=== PATIENT | female | born 1955 | race Caucasian/White ===

== ENCOUNTER 2017-02-24 11:32 | Day surgery (SDC) | payer MEDICARE, OTHER ==
--- NOTE | ~2017-02-24 | EGD ---
EGD REPORT [facility] [address] [place] [address] NAME: IAN MANTILLA : [birth year] STATUS : REG [facility] PAT#: [id number] AGE: 61 ADM/REG DATE : 02/24/17 MR#: [id number] REPORT SERV DATE: 02/24/17 DICTATED BY: DORETHA JACOBS DATE: 02/24/17 REPORT STATUS : Draft [facility]ANSCRIBED [facility]: [facility] DATE: 02/24/17 [facility] Patient Name: Ian Mantilla Date of : 1955 Attending MD: DORETHA JACOBS MD Procedure Date No Time: 02/24/2017 Procedure: Colonoscopy Indications: High risk colon cancer surveillance: Personal history of colonic polyps, (Last colon 12/2014) Referring MD: GEENA HERNANDEZ MD Medicines: See the Anesthesia note for documentation of the administered medications Complications: No immediate complications. Procedure: Pre-Anesthesia Assessment: - ASA Grade Assessment: III - A patient with severe systemic disease. After I obtained informed consent, the scope was passed under direct vision. Throughout the procedure, the patient's blood pressure, pulse, and oxygen saturations were monitored continuously. The PCF [id number] was introduced through the anus and advanced to the cecum, identified by appendiceal orifice and ileocecal valve. The colonoscopy was performed without difficulty. The patient tolerated the procedure well. The quality of the bowel preparation was adequate. Min fecal debris. Findings: The perianal and digital rectal examinations were normal. Internal hemorrhoids were found during retroflexion and were small. Rectal polypectomy scar A sessile polyp was found in the ascending colon. The polyp was small in size. The polyp was removed with a cold biopsy forceps. Resection and retrieval were complete. Impression: - Internal hemorrhoids. - Rectal polypectomy scar - One small polyp in the ascending colon. Resected and retrieved. Recommendation: - Patient has a contact number available for emergencies. The signs and symptoms of potential delayed complications were discussed with the patient. Return to normal activities tomorrow. Written discharge instructions were provided to the patient. - Regular diet. EGD REPORT [address] [place]. [address] NAME: IAN MANTILLA : [birth year] STATUS : REG [facility]#: [id number] AGE: 61 ADM/REG DATE : 02/24/17 MR#: [id number] REPORT SERV DATE: 02/24/17 DICTATED BY: DORETHA JACOBS DATE: 02/24/17 REPORT STATUS : Draft TRANSCRIBED BY: [place] DATE: 02/24/17 - Continue present medications. - Repeat colonoscopy in 3 years for surveillance. - FOR YOUR BIOPSY RESULTS: Please go to [email or web address] and register to receive your results via the portal. Your biopsy results will be posted there in about 7 to 10 days. IF you do not see result in 10 days, call office. Procedure Code(s): --- Professional --- 99147, Colonoscopy, flexible, proximal to splenic flexure; with biopsy, single or multiple Diagnosis Code(s): --- Professional --- K64.8, Other hemorrhoids D12.2, Benign neoplasm of ascending colon Z86.010, Personal history of colonic polyps CPT copyright 2013 [employer]. All rights reserved. The codes documented in this report are preliminary and upon clinical coder review may be revised to meet current compliance requirements. Doretha Jacobs MD DORETHA JAOCBS MD 02/24/2017 12:58 PM This report has been signed electronically. Number of Addenda: 0 Note Initiated On: 02/24/2017 12:35 PM Scope Withdrawal Time 0 hours 9 minutes 50 seconds [id number] [place] [address]
[~2017-02-24 11:32] MED LIST: ALLEGRA180 PO; AMB10 PO; AMBIEN CR12.5 MG PO; BENTYL10 PO; COR40 PO; DIOVAN HCT320 MG/25 PO; ESTRATESHS PO; ESTRATEST OR; FLAGYL250 MG PO; GLUCPH PO; HALCION0.25 MG PO; LEXAPRO10 PO; LOM PO; LORT7 PO; LOTE20 PO; LOTE40 PO; NEXIUM40 PO; NORCO1 TAB PO; NUVIGIL150 MG PO; OXYCON20 PO; PHENADOZ25 MG RE; PROBIOTIC PO; SOMA250 MG OR; SOMA250 MG PO; SUCR PO; TOPAMAX50 MG PO; VITAMIN D31000 UNIT PO; ZANTAC150 MG PO; ZOCOR40 PO; ZOFRAN8 PO; [UNRECOGNIZED DRUG - CODE]; [UNRECOGNIZED DRUG - OTHER] PO
== END 2017-02-24 23:59 | disposition home health service (06) ==
LOC: DMU 11:32
PROVIDERS: Internal Medicine Gastroenterology
PROC: 0DBK8ZZ Excision of Ascending Colon, Via Natural or Artificial Opening Endoscopic (ICD-10-PCS; principal; 2017-02-24 13:00)
DX: Z12.11 Encounter for screening for malignant neoplasm of colon (principal); K63.5 Polyp of colon; K64.8 Other hemorrhoids; I10 Essential (primary) hypertension; G47.33 Obstructive sleep apnea (adult) (pediatric); E11.9 Type 2 diabetes mellitus without complications; Z86.010 Personal history of colon polyps
CPT/HCPCS: 82962; 88305